=== PATIENT | male | born 1950 | race Caucasian/White ===

== ENCOUNTER → 2016-03-23 | Outpatient (CLI) | payer MEDICARE, MEDICAID | LOC: RAD 15:28 | PROVIDERS: ATTEND Nurse Practitioner Adult Health | DX: R91.1 Solitary pulmonary nodule (principal); J98.4 Other disorders of lung | CPT/HCPCS: 78814; A9552 ==

== ENCOUNTER → 2016-04-25 | Outpatient (CLI) | payer MEDICARE, MEDICAID | LOC: RAD 16:12 | PROVIDERS: ATTEND Family Medicine | DX: M54.16 Radiculopathy, lumbar region (principal) | CPT/HCPCS: 72110 ==

== ENCOUNTER → 2016-12-12 | Outpatient (CLI) | payer MEDICARE, MEDICAID ==
[~2016-12-12] MED LIST: DIAZEPAM 5 MG TABLET ONE
--- NOTE | 2016-12-12 12:13 | RADIOLOGY REPORT (SQ) ---
EXAM DESCRIPTION: MRI LUMBAR SPINE WITHOUT COMPLETED DATE/TIME: 12/12/2016 9:45 am REASON FOR STUDY: OTH SPECIFIC ARTHROPATHIES, NEC, OT SITE (M12.88) M54.5 LOW BACK PAIN M12.88 OT H SPECIFIC ARTHROPATHIES, NEC, OTH SITE COMPARISON: CT abdomen pelvis 05/26/2013 PET-CT 03/23/2016 Lumbar spine films 04/25/2016 TECHNIQUE: Sagittal and Axial imaging includes T1, T2, STIR and gradient echo sequences. Coronal T2/ HASTE imaging. LIMITATIONS: None. FINDINGS: VISUALIZED UPPER ABDOMEN: Limited evaluation. No acute or suspicious findings suggested. SEGMENTATION: No transitional anatomy. The lowest well-developed disc space is labeled L5-S1. ALIGNMENT: Mild convex rightward lumbar curvature VERTEBRAE: Intact. BONE MARROW: Fatty and sclerotic vertebral body endplate changes at L2-3 DISC SIGNAL: High-grade disc space loss of height with vacuum phenomenon at L2-3. Mild disc space lo ss of height with vacuum phenomenon at L4-5. Elsewhere, decreased T2 weighted intervertebral disc si gnal is present. POSTERIOR ELEMENTS: Generally intact. No pars defect evident. HARDWARE: None in the spine. CORD AND CONUS: Normal in size and signal intensity. Conus at the L1 level. SOFT TISSUES: No aortic aneurysm seen. No bulky retroperitoneal adenopathy or mass. No paraspinal mas s or fluid. T11-12: At the upper edge of the field of view. Moderate bilateral facet arthropathy is present rig ht greater than left, mildly flattening the rightward posterior thecal sac. No significant central s tenosis. Mild bilateral foraminal narrowing without exiting nerve root impingement. T12-L1: Mild diffuse posterior disc bulging is present with mild bilateral facet hypertrophy. No ce ntral stenosis. Very mild bilateral foraminal narrowing without exiting nerve root impingement. L1-L2: Broad diffuse mild disc bulge, mild to moderate bilateral facet and ligament hypertrophy. No central stenosis. Mild bilateral inferior foraminal narrowing without exiting nerve root impingement . L2-L3: Broad diffuse posterior disc bulge and bony spurring with moderate bilateral facet and ligamen t hypertrophy. There is a left paracentral moderate-sized chronic appearing disc herniation, flatten ing the leftward thecal sac near the takeoff of the left proximal L3 nerve root in the lateral recess . This is best shown on axial T2 image 19. Elsewhere at L2-3, there is mild central canal stenosis, mild right and moderate left foraminal narro wing without exiting L2 nerve root impingement. L3-L4: Broad diffuse posterior disc bulge and bony spurring is present with moderate bilateral facet and ligament hypertrophy. Mild central stenosis. Moderate right and left foraminal narrowing withou t definite exiting L3 nerve root impingement. L4-L5: Broad diffuse posterior disc bulging and moderate bilateral facet and ligament hypertrophy rhonda ng with a central protrusion and right foraminal protrusion. This causes moderate central canal sten osis and high-grade right foraminal narrowing with effacement of the fat around the exiting right L4 nerve root. These changes are best shown on axial T2 images 28 and 29, and far right sagittal T2 jose ge 4. There is moderate left foraminal narrowing without definite exiting left L4 nerve root impinge ment. L5-S1: Broad diffuse posterior disc bulging is present with mild facet and ligament hypertrophy. Mil d central canal stenosis. Moderate right, mild left foraminal narrowing without exiting L5 nerve parker t impingement. SACRUM: Visualized upper sacrum intact. OTHER: No other significant findings. IMPRESSION: Significant flattening of the thecal sac at the takeoff of the left proximal L3 nerve ro ot in the lateral recess at the L2-3 disc level. High-grade right L4-5 foraminal narrowing with effacement of the fat around the exiting right L4 nerv e root. Mild central canal stenosis at L3-4 and at L5-S1. Moderate central canal stenosis at L4-5 TECHNICAL DOCUMENTATION: JOB ID: [id number] [employer]- All Rights Reserved
== END ==
LOC: RAD 08:20
PROVIDERS: ATTEND Nurse Practitioner Psychiatric/Mental Health
DX: M12.88 Other specific arthropathies, not elsewhere classified, other specified site (principal); M54.5 Low back pain
CPT/HCPCS: 72148; A9270

== ENCOUNTER 2017-01-17 11:58 | Inpatient (IN) | payer MEDICARE, MEDICAID ==
[2017-01-17] MEDS ORDERED: IPRATROPIUM/ALBUTEROL 0.5-2.5 MG/3 ML AMPUL NEB ONE (12:49)
[2017-01-17] MEDS ORDERED: PREDNISONE 20 MG TABLET PO ONE (12:49)
--- NOTE | 2017-01-17 12:51 | ER Document Report ---
ED Medical Screen (RME) - General Chief Complaint: Shortness Of Breath Stated Complaint: SHORTNESS OF BREATH Time Seen by Provider: 01/17/17 12:40 Notes: The patient is a 66-year-old male, past medical history COPD (on home 2 L), presents with increasing shortness of breath and cough with wheezing over the past week. He has been using his albuterol inhaler without much relief of his symptoms. His fiance is admitted currently for influenza he is worried that he has it also. PE: Mild respiratory distress. Diffuse wheezing. I have greeted and performed a rapid initial assessment of this patient. A comprehensive ED assessment and evaluation of the patient, analysis of test results and completion of the medical decision making process will be conducted by additional ED providers. TRAVEL OUTSIDE OF THE [place] IN LAST 30 DAYS: No - Related Data Allergies/Adverse Reactions: No Known Allergies Allergy (Verified 01/17/17 12:21) Home Medications: Current Home Medications Albuterol Sulfate [Ventolin Hfa] 2 dose IH PRN PRN 01/17/17 [History] Budesonide/Formoterol Fumarate [Symbicort 160-4.5 Mcg Inhaler] 2 dose IH BID [History] Metoprolol Tartrate 50 mg PO BID 01/17/17 [History] Oxycodone HCl [Oxycodone HCl] 10 mg PO PRN PRN 01/17/17 [History] Tiotropium [place] [Spiriva Handihaler 18 mcg/dose (30 Dose)] 1 cap IH DAILY [History] Past Medical History - Social History Chew tobacco use (# tins/day): No Frequency of alcohol use: None Drug Abuse: None - Past Medical History Cardiac Medical History: Reports: Hx Hypertension, Hx Heart Murmur - IN CHILDHOOD Denies: Hx Coronary Artery Disease, Hx Heart Attack Pulmonary Medical History: Reports: Hx Asthma, Hx Bronchitis Denies: Hx COPD, Hx Pneumonia Neurological Medical History: Denies: Hx Cerebrovascular Accident, Hx Seizures Renal/ Medical History: Denies: Hx Peritoneal Dialysis Musculoskeltal Medical History: Reports Hx Arthritis Past Surgical History: Reports: Hx Inguinal Hernia - Immunizations Hx Diphtheria, Pertussis, Tetanus Vaccination: Yes - STATES ALMOST 10 YEARS AGO Physical Exam - Vital signs Vitals: Temp Pulse Resp BP Pulse Ox 98.4 F 85 20 130/87 H 90 L 01/17/17 12:17 01/17/17 12:17 01/17/17 12:17 01/17/17 12:17 01/17/17 12:17 Course - Vital Signs Vital signs: Temp Pulse Resp BP Pulse Ox 98.4 F 85 20 130/87 H 90 L 01/17/17 12:17 01/17/17 12:17 01/17/17 12:17 01/17/17 12:17 01/17/17 12:17
[2017-01-17 13:13] LABS: ABSOLUTE BASOPHILS # (AUTO) 0.1 10^3/uL (0.0-0.2); ABSOLUTE EOSINOPHILS # (AUTO) 0.2 10^3/uL (0.0-0.6); ABSOLUTE LYMPHOCYTES (AUTO) 3.5 10^3/uL (0.5-4.7); ABSOLUTE MONOCYTES (AUTO) 0.9 10^3/uL (0.1-1.4); ABSOLUTE NEUT (AUTO) 5.9 10^3/uL (1.7-8.2); EOSINOPHILS % (AUTO) 2.1 % (0-6); HEMATOCRIT 41.2 % (37.9-51.0); HEMOGLOBIN 13.6 g/dL (13.5-17.0); HGB HCT DIFFERENCE -0.4; LYMPHOCYTES % (AUTO) 32.6 % (13-45); MEAN CORPUSCULAR HEMOGLOBIN 27.2 pg (27.0-33.4); MEAN CORPUSCULAR HGB CONC 33.1 g/dL (32.0-36.0); MEAN CORPUSCULAR VOLUME 82 fl (80-97); MONOCYTES % (AUTO) 8.4 % (3-13); RED BLOOD COUNT 5.01 10^6/uL (4.35-5.55); RED CELL DISTRIBUTION WIDTH 16.4 % (11.5-14.0); SEGMENTED NEUTROPHILS % (AUTO) 55.9 % (42-78); VENOUS BLOOD BASE EXCESS 6.8 mmol/L; VENOUS BLOOD HCO3 35.4 mmol/L (20-32); VENOUS BLOOD PH 7.33 (7.30-7.42); WHITE BLOOD COUNT 10.6 10^3/uL (4.0-10.5)
[2017-01-17 13:18] LABS: VENOUS BLOOD PCO2 69.1 mmHg (35-63)
--- NOTE | 2017-01-17 13:21 | RADIOLOGY REPORT (SQ) ---
EXAM DESCRIPTION: CHEST PA/LAT COMPLETED DATE/TIME: 01/17/2017 1:13 pm REASON FOR STUDY: SOB COMPARISON: 01/03/2016 EXAM PARAMETERS: NUMBER OF VIEWS: two views TECHNIQUE: Digital Frontal and Lateral radiographic views of the chest acquired. RADIATION DOSE: NA LIMITATIONS: none FINDINGS: LUNGS AND PLEURA: Chronic changes at the right base. Hyperinflation with attenuation of b lood vessels. MEDIASTINUM AND HILAR STRUCTURES: No masses or contour abnormalities. HEART AND VASCULAR STRUCTURES: Normal size heart. Valve replacement. BONES: No acute findings. HARDWARE: Valve replacement. OTHER: No other significant finding. IMPRESSION: COPD. No acute radiographic finding. Interval aortic valve replacement. TECHNICAL DOCUMENTATION: JOB ID: [id number] [employer]- All Rights Reserved
[2017-01-17 13:43] LABS: ALANINE AMINOTRANSFERASE 54 U/L (21-72); ALKALINE PHOSPHATASE 63 U/L (38-126); ANION GAP 9 (5-19); ASPARTATE AMINO TRANSFERASE 40 U/L (17-59); BILIRUBIN,DIRECT 0.5 mg/dL (0.0-0.4); BILIRUBIN,TOTAL 0.5 mg/dL (0.2-1.3); BLOOD UREA NITROGEN 24 mg/dL (7-20); CALCIUM 9.7 mg/dL (8.4-10.2); CARBON DIOXIDE 36 mmol/L (22-30); CHLORIDE 101 mmol/L (98-107); CREATINE KINASE 44 U/L (55-170); CREATININE RESULT 1.06 mg/dL (0.52-1.25); GLUCOSE 101 mg/dL (75-110); POTASSIUM 4.5 mmol/L (3.6-5.0); SODIUM 145.7 mmol/L (137-145); TOTAL PROTEIN 7.1 g/dL (6.3-8.2)
[2017-01-17] MEDS ORDERED: MORPHINE SULFATE 10 MG/ML INJ IV ONE (14:47)
[2017-01-17] MEDS ORDERED: ONDANSETRON HCL INJ/PF 4 MG/2 ML SDV IV ONE (14:48)
[2017-01-17] MEDS ORDERED: LORAZEPAM INJ 2 MG/1 ML VIAL IV ONE (14:49)
--- NOTE | 2017-01-17 14:55 | ER Document Report ---
ED Respiratory Problem - General Chief Complaint: Shortness Of Breath Stated Complaint: SHORTNESS OF BREATH Time Seen by Provider: 01/17/17 12:40 Mode of Arrival: Ambulatory Information source: Patient Notes: Patient is a 66-year-old male who comes emergency room complaining of increasing shortness of breath for the past week. Patient came into the emergency room through the front where he was evaluated and labs ordered. Patient when he got to the room was working fairly hard on his breathing. He had dropped down to between 86 and 88% on room air. Patient has a history of COPD and is currently on nebulizers at home and oxygen as well. He states he is increased his oxygen over the past week up to around 3-4 L. Patient also admits that he continues smoking a pack and a little bit a day and states that is down from his normal amount. Patient recently had a valve replacement which I believe was the aortic valve and it was a pigtail. This was done approximately 8 months ago. TRAVEL OUTSIDE OF THE [place] IN LAST 30 DAYS: No - HPI Patient complains to provider of: COPD, Cough, Hurts to breath, Short of breath Onset: Last week Duration: Continuous, Worse/persistent Initiating Event: Exertion Quality of pain: Achy Severity: Moderate Pain Level: 3 Short of Breath: Moderate Chest pain/discomfort: denies: Center, Constant, Heaviness, Intermittent, Left, Pain, Radiates to arm, Radiates to back, Radiates to jaw, Right, Tightness, Worse with deep breaths Cough: Productive Sputum amount: Moderate Sputum color: Clear, Yellow Sputum consistency: Thick At home treatment: Bronchodilators, Inhaled steroids EMS treatments: Bronchodilators, Oxygen Associated symptoms: Anxiety, Congestion, Cough, Hurts to breathe, Wheezing Similar symptoms previously: Yes Recently seen / treated by doctor: No Notes: Important to note that patient states his is in hospital on 4 4 with pneumonia has been treated. Patient is somewhat argumentative and demanding has threatened to leave AMA on 2 occasions because he did not get any pain medication when he asked for and or did not get food when he asked for. I had a long talk with patient informed him is not the only person here that we have to give us time to do our jobs. He ended up apologizing. - Related Data Allergies/Adverse Reactions: No Known Allergies Allergy (Verified 01/17/17 12:21) Home Medications: Current Home Medications Albuterol Sulfate [Ventolin Hfa] 2 dose IH PRN PRN 01/17/17 [History] Budesonide/Formoterol Fumarate [Symbicort 160-4.5 Mcg Inhaler] 2 dose IH BID [History] Metoprolol Tartrate 50 mg PO BID 01/17/17 [History] Oxycodone HCl [Oxycodone HCl] 10 mg PO PRN PRN 01/17/17 [History] Tiotropium [place] [Spiriva Handihaler 18 mcg/dose (30 Dose)] 1 cap IH DAILY [History] Past Medical History - General Information source: Patient - Social History Smoking Status: Current Every Day Smoker Cigarette use (# per day): Yes - Little over a pack a day Chew tobacco use (# tins/day): No Smoking Education Provided: Yes Frequency of alcohol use: None Drug Abuse: None Family History: Reviewed & Not Pertinent Patient has suicidal ideation: No Patient has homicidal ideation: No - Past Medical History Cardiac Medical History: Reports: Hx Hypertension, Hx Heart Murmur - IN CHILDHOOD Denies: Hx Coronary Artery Disease, Hx Heart Attack Pulmonary Medical History: Reports: Hx Asthma, Hx Bronchitis Denies: Hx COPD, Hx Pneumonia Neurological Medical History: Denies: Hx Cerebrovascular Accident, Hx Seizures Renal/ Medical History: Denies: Hx Peritoneal Dialysis Musculoskeltal Medical History: Reports Hx Arthritis Past Surgical History: Reports: Hx Inguinal Hernia - Immunizations Hx Diphtheria, Pertussis, Tetanus Vaccination: Yes - STATES ALMOST 10 YEARS AGO Review of Systems - Review of Systems Constitutional: No symptoms reported, Malaise, Weakness EENT: Sinus pressure Cardiovascular: No symptoms reported Respiratory: Cough, Hurts to breathe, Short of breath, Sputum, Wheezing Gastrointestinal: No symptoms reported Genitourinary: No symptoms reported Male Genitourinary: No symptoms reported Musculoskeletal: No symptoms reported Skin: No symptoms reported Hematologic/Lymphatic: No symptoms reported Neurological/Psychological: No symptoms reported -: Yes All other systems reviewed and negative Physical Exam - Vital signs Vitals: Temp Pulse Resp BP Pulse Ox 98.4 F 85 20 130/87 H 90 L 01/17/17 12:17 01/17/17 12:17 01/17/17 12:17 01/17/17 12:17 01/17/17 12:17 Interpretation: Hypertensive - General General appearance: Anxious In distress: Moderate - HEENT Head: Normocephalic, Atraumatic Eyes: Normal Sinus: Frontal, Tenderness Nasal: Clear rhinorrhea Mouth/Lips: Normal Mucous membranes: Normal Pharynx: Post nasal drainage Neck: Normal - Respiratory Respiratory status: No respiratory distress Chest status: Nontender. No: Tender, Chest mass, Ecchymosis, No pleuritic chest pain, Pain on movement, Pain with cough, Pain with deep breathing, Wounds , Accessory muscle use, Prolonged expirations, Splinting, Other Breath sounds: Decreased air movement, Nonproductive cough, Rales, Rhonchi, Wheezing, Other - Auscultation patient's lung zuñiga show patient has bilateral breath sounds with breath sounds decreased throughout with audible inspiratory expiratory wheeze and rhonchi scattered throughout all lung zuñiga. Patient sounds wet. - Cardiovascular Rhythm: Regular Heart sounds: Normal auscultation Murmur: No Notes: Examination patient's chest shows heart to have a regular rate and rhythm no murmur is appreciated however he can hear mechanical click of the valve. - Extremities Notes: Examination patient's lower extremities show no signs of pedal edema no signs of overt heart failure. - Neurological Neuro grossly intact: Yes Cognition: Normal Orientation: AAOx4 Kermit Coma Scale Eye Opening: Spontaneous Kirk Coma Scale Verbal: Oriented Kirk Coma Scale Motor: Obeys Commands Kermit Coma Scale Total: 15 Speech: Normal Course - Vital Signs Vital signs: Temp Pulse Resp BP Pulse Ox 98.4 F 85 20 130/87 H 92 01/17/17 12:17 01/17/17 12:17 01/17/17 12:17 01/17/17 12:17 01/17/17 13:15 - Laboratory Result Diagrams: 01/17/17 12:58 01/17/17 12:58 Laboratory results interpreted by me: 01/17/17 01/17/17 01/17/17 12:58 12:58 12:58 WBC 10.6 H RDW 16.4 H VBG pCO2 69.1 H* VBG HCO3 35.4 H Sodium 145.7 H Carbon Dioxide 36 H BUN 24 H Direct Bilirubin 0.5 H Creatine Kinase 44 L - Diagnostic Test Radiology results interpreted by me: 01/17/17 15:00 Radiologist reads the chest x-ray as no acute findings COPD is noted. - EKG Interpretation by Me EKG shows normal: Sinus rhythm Rate: Normal Rhythm: NSR - Transfer of Care Notes: 01/17/17 15:01 Patient improved somewhat after getting the Solu-Medrol and his nebulized treatment. I gave a little bit of pain medication to calm patient down he became a little bit agitated because he could not get something to eat and he is back was hurting him from his breathing. I gave him just a touch of Ativan 0.5 and I gave him just a touch of morphine at 2 mg. I believe this is ingest enough to take the edge off of them. I did have a talk with patient and informed him that we have more than 1 here in this emergency room. I informed him that I left his room 10 minutes prior with the indication to get him admitted and he agreed to wait till I could do so. However that did not happen patient got irate was getting dressed to leave when I informed him he was admitted. Discharge - Discharge Condition: Fair Disposition: ADMITTED INPATIENT Admitting Provider: Dr. Avelar Unit Admitted: Telemetry Instructions: Chronic Obstructive Lung Disease ([facility]) Referrals: LINNEA LILLY MD [Primary Care Provider] - Follow up as needed
[2017-01-17] MEDS ORDERED: ACETAMINOPHEN 325 MG TABLET PO PRN (15:21)
[2017-01-17] MEDS ORDERED: ENOXAPARIN SODIUM INJ 40 MG/0.4 ML DISP.SYRIN SUBCUT ONE (16:00)
[2017-01-17] MEDS ORDERED: NICOTINE 21 MG/24 HR PATCH.TD24 TD ONE (16:00)
[2017-01-17] MEDS ORDERED: BUDESONIDE/FORMOTEROL 160-4.5 MCG 60 PUFF/6 GM MDI IH SCH (18:00)
[2017-01-17] MEDS ORDERED: METOPROLOL TARTRATE 50 MG TABLET PO SCH (18:00)
[2017-01-17] MEDS: OXYCODONE HCL IR 5 MG TABLET PO PRN (19:02)
[2017-01-17] MEDS: BUDESONIDE/FORMOTEROL 160-4.5 MCG 60 PUFF/6 GM MDI IH SCH (21:49)
[2017-01-17] MEDS: METOPROLOL TARTRATE 50 MG TABLET PO SCH (21:49)
[2017-01-18 06:12] LABS: ABSOLUTE LYMPHOCYTES (AUTO) 1.9 10^3/uL (0.5-4.7); ABSOLUTE MONOCYTES (AUTO) 0.9 10^3/uL (0.1-1.4); ABSOLUTE NEUT (AUTO) 10.5 10^3/uL (1.7-8.2); BASOPHILS % (AUTO) 0.4 % (0-2); EOSINOPHILS % (AUTO) 0.1 % (0-6); HEMATOCRIT 39.4 % (37.9-51.0); HEMOGLOBIN 12.8 g/dL (13.5-17.0); LYMPHOCYTES % (AUTO) 14.4 % (13-45); MEAN CORPUSCULAR HEMOGLOBIN 26.7 pg (27.0-33.4); MEAN CORPUSCULAR HGB CONC 32.6 g/dL (32.0-36.0); MEAN CORPUSCULAR VOLUME 82 fl (80-97); MONOCYTES % (AUTO) 6.8 % (3-13); RED BLOOD COUNT 4.81 10^6/uL (4.35-5.55); RED CELL DISTRIBUTION WIDTH 16.3 % (11.5-14.0); SEGMENTED NEUTROPHILS % (AUTO) 78.3 % (42-78); WHITE BLOOD COUNT 13.4 10^3/uL (4.0-10.5)
[2017-01-18 06:35] LABS: ANION GAP 10 (5-19); BLOOD UREA NITROGEN 33 mg/dL (7-20); CALCIUM 9.6 mg/dL (8.4-10.2); CARBON DIOXIDE 34 mmol/L (22-30); CHLORIDE 100 mmol/L (98-107); CREATININE RESULT 1.09 mg/dL (0.52-1.25); GLUCOSE 146 mg/dL (75-110); MAGNESIUM 2.1 mg/dL (1.6-2.3); POTASSIUM 4.7 mmol/L (3.6-5.0); SODIUM 144.2 mmol/L (137-145)
[2017-01-18] MEDS: ALBUTEROL SULFATE 0.083% NEB 2.5 MG/3 ML AMPUL NEB PRN ×3 (08:40→22:39)
--- NOTE | 2017-01-18 08:58 | PDOC PROGRESS REPORT ---
Subjective Progress Note for:: 01/18/17 Subjective:: This is a follow-up visit for acute COPD exacerbation. Patient states that he keeps coughing and is now feeling soreness in his chest. He also complains of sciatic pain and says that he only got 1 dose of his narcotic pills and that was last night. The patient also states that he feels as though he is wheezing and that his respiratory status feels essentially the same as yesterday. Physical Exam Vital Signs: Temp Pulse Resp BP Pulse Ox 97.4 F 82 20 111/63 92 01/18/17 04:11 01/18/17 08:41 01/18/17 08:41 01/18/17 04:11 01/18/17 08:41 Intake & Output 01/17/17 01/18/17 01/19/17 06:59 06:59 06:59 Intake Total 890 Output Total 320 Balance 570 Weight 76.2 kg GENERAL: This is a well-developed and nourished appearing white male resting in bed currently in no acute distress. HEART: Regular rate and rhythm. No murmurs, rubs or gallops. LUNGS: Occasional expiratory wheeze bilaterally otherwise clear in the upper lung zuñiga with equal rise and fall of the chest. The patient is able to speak in full and complete sentences. ABDOMEN: Soft, nontender, nondistended with normoactive bowel sounds EXTREMETIES: No clubbing, cyanosis or edema. 2+ peripheral pulses bilaterally. NEURO: Awake, alert and oriented 3. Cranial nerves II through XII are grossly intact Results Laboratory Results: 01/18/17 05:44 01/18/17 05:44 01/18/17 01/18/17 05:44 05:44 WBC 13.4 H RBC 4.81 Hgb 12.8 L Hct 39.4 MCV 82 MCH 26.7 L MCHC 32.6 RDW 16.3 H Plt Count 215 Seg Neutrophils % 78.3 H Lymphocytes % 14.4 Monocytes % 6.8 Eosinophils % 0.1 Basophils % 0.4 Absolute Neutrophils 10.5 H Absolute Lymphocytes 1.9 Absolute Monocytes 0.9 Absolute Eosinophils 0.0 Absolute Basophils 0.0 Sodium 144.2 Potassium 4.7 Chloride 100 Carbon Dioxide 34 H Anion Gap 10 BUN 33 H Creatinine 1.09 Est GFR ( Amer) > 60 Est GFR (Non-Af Amer) > 60 Glucose 146 H Calcium 9.6 Magnesium 2.1 Impressions: Chest X-Ray 01/17/17 12:13 IMPRESSION: COPD. No acute radiographic finding. Interval aortic valve replacement. Assessment & Plan - Diagnosis (1) Tobacco abuse Plan: Smoking cessation is advised. (2) Hypertension Plan: Continue metoprolol for now. (4) COPD with exacerbation Plan: Continue steroids. Solu-Medrol 40 every 12. Add Romycin. Add as needed Robitussin and as needed Tessalon Perles. Continue as needed nebulizer treatments. Continue Spiriva and Symbicort - Time Time Spent with patient: 15-24 minutes - Inpatient Certification Medical Necessity: Need Close Monitoring Due to Risk of Patient Decompensation
--- NOTE | 2017-01-18 08:59 | PDOC H&P ---
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 The patient has been short of breath for the last 8 months. He says that it has been getting progressively worse but especially over the last 2 days if to the point where he cannot even walk to take out the trash. He states that he is also been feeling quite dizzy as well. He tried using his inhalers as prescribed as well as increasing his home O2 from 2 L/min to 4 L/min and neither of these interventions helped. The patient's fianc is currently hospitalized here as well. She has a diagnosis of pneumonia. In addition to this the patient has been around other Associates who had been sick as well. He also reports chest discomfort and production of yellow phlegm. He is a current smoker and smokes about 1 pack per day. The patient has been a smoker for the last 50 years and has smoked upwards of 2-3 packs per day. He states that he is trying to cut down. In the emergency room chest x-ray was done which was unrevealing. The patient's O2 sat was found to be right at 88%. He was started on oxygen down in the emergency room and given a nebulizer treatment along with a dose of Solu-Medrol. The patient states that he follows with a lung doctor but cannot remember the lung doctors name. He denies any fevers, chills, nausea, vomiting. Past Medical History Cardiac Medical History: Reports: Hypertension, Heart Murmur - IN CHILDHOOD Pulmonary Medical History: Reports: Asthma, Chronic Obstructive Pulmonary Disease (COPD) Neurological Medical History: Reports: Other - Chronic back pain with sciatica Musculoskeltal Medical History: Reports: Arthritis Past Surgical History Past Surgical History: Reports: Herniorrhaphy, Valve Replacement - Aortic pig valve Social History Information Source: Patient Lives with: Alone Smoking Status: Current Every Day Smoker Cigarettes Packs Per Day: 1 Number of Years Smokin Hx Recreational Drug Use: No Drugs: Marijuana - Patient quit smoking marijuana 30 years ago. Past Social History Note: Patient consumes beer on a weekly basis. He states he drinks a couple beers once a week. He has been smoking for the last 50 years to upwards of 2-3 packs per day but lately has been down to 1 pack per day - Advance Directive Resuscitation Status: Full Code Family History Family History: None Parental Family History Reviewed: Yes Children Family History Reviewed: Yes Sibling(s) Family History Reviewed.: Yes Medication/Allergy Home Medications: Albuterol Sulfate [Ventolin Hfa] 2 dose IH PRN PRN 01/17/17 Budesonide/Formoterol Fumarate [Symbicort 160-4.5 Mcg Inhaler] 2 dose IH BID Metoprolol Tartrate 50 mg PO BID 01/17/17 Oxycodone HCl [Oxycodone HCl] 10 mg PO PRN PRN 01/17/17 Tiotropium [place] [Spiriva Handihaler 18 mcg/dose (30 Dose)] 1 cap IH DAILY Allergies/Adverse Reactions: No Known Allergies Allergy (Verified 01/17/17 12:21) Review of Systems Review of Systems: Review of systems is pertinent for that already listed in the HPI. In addition to this the patient admits to constipation with his chronic use of pain medicines as well as chronic back pain from sciatica trouble. He denies blood in the urine, blood in the stool, throwing up blood, vomiting blood, diarrhea, changes in weight, joint aches or pains, abdominal pain, hot or cold flashes. Physical Exam Vital Signs: Temp Pulse Resp BP Pulse Ox 98.4 F 85 20 130/87 H 92 01/17/17 12:17 01/17/17 12:17 01/17/17 12:17 01/17/17 12:17 01/17/17 13:15 Intake & Output 01/16/17 01/17/17 01/18/17 06:59 06:59 06:59 Weight 71.1 kg GENERAL: This is a well-developed and nourished appearing white male resting in bed currently not appearing to be in any acute distress. HEENT: Normocephalic atraumatic. Trachea is midline. Moist mucous membranes. No scleral icterus. No some mandibular lymphadenopathy. HEART: Regular rate and rhythm. No murmurs, rubs or gallops. LUNGS: Diminished breath sounds at the bases bilaterally otherwise clear in the upper lung zuñiga with equal rise and fall of the chest. The patient is able to speak in full and complete sentences. He is satting in the room at around 87 -88% at rest and when asked to sit up the patient immediately drops down to 84% and with further speaking down to 81%. Despite his low oxygenation the patient never became tachypneic. ABDOMEN: Soft, nontender, nondistended with normoactive bowel sounds EXTREMETIES: No clubbing, cyanosis or edema. 2+ peripheral pulses bilaterally. Strength is 5 out of 5 in both upper and lower extremities bilaterally. NEURO: Awake, alert and oriented 3. Cranial nerves II through XII are specifically intact. Speech is fluent Results Laboratory Results: 01/17/17 12:58 01/17/17 12:58 01/17/17 01/17/17 01/17/17 12:58 12:58 12:58 WBC 10.6 H RBC 5.01 Hgb 13.6 Hct 41.2 MCV 82 MCH 27.2 MCHC 33.1 RDW 16.4 H Plt Count 231 Seg Neutrophils % 55.9 Lymphocytes % 32.6 Monocytes % 8.4 Eosinophils % 2.1 Basophils % 1.0 Absolute Neutrophils 5.9 Absolute Lymphocytes 3.5 Absolute Monocytes 0.9 Absolute Eosinophils 0.2 Absolute Basophils 0.1 VBG pH 7.33 VBG pCO2 69.1 H* VBG HCO3 35.4 H VBG Base Excess 6.8 Sodium 145.7 H Potassium 4.5 Chloride 101 Carbon Dioxide 36 H Anion Gap 9 BUN 24 H Creatinine 1.06 Est GFR ( Amer) > 60 Est GFR (Non-Af Amer) > 60 Glucose 101 Calcium 9.7 Total Bilirubin 0.5 AST 40 ALT 54 Alkaline Phosphatase 63 Total Protein 7.1 Albumin 4.0 01/17/17 01/17/17 12:58 12:58 Creatine Kinase 44 L Troponin I 0.016 Impressions: Chest X-Ray 01/17/17 12:13 IMPRESSION: COPD. No acute radiographic finding. Interval aortic valve replacement.
[2017-01-18] MEDS: ENOXAPARIN SODIUM INJ 40 MG/0.4 ML DISP.SYRIN SUBCUT SCH (09:33)
[2017-01-18] MEDS: BUDESONIDE/FORMOTEROL 160-4.5 MCG 60 PUFF/6 GM MDI IH SCH ×2 (09:33→21:58)
[2017-01-18] MEDS: METHYLPREDNISOLONE INJ 40 MG/1 ML SDV IV SCH ×2 (09:34→21:58)
[2017-01-18] MEDS: AZITHROMYCIN 250 MG TABLET PO SCH (09:34)
[2017-01-18] MEDS: BENZONATATE 100 MG CAPSULE PO PRN (09:35)
[2017-01-18] MEDS: METOPROLOL TARTRATE 50 MG TABLET PO SCH ×2 (09:35→21:58)
[2017-01-18] MEDS: OXYCODONE HCL IR 5 MG TABLET PO PRN ×2 (09:35→17:43)
[2017-01-18] MEDS: TIOTROPIUM BROMIDE DPI 5 CAP/KIT (18 MCG/CAP) IH SCH (09:35)
[2017-01-18] MEDS: GUAIFENESIN SYRP 200 MG/10 ML UDC PO PRN (18:47)
[2017-01-19] MEDS: OXYCODONE HCL IR 5 MG TABLET PO PRN ×4 (02:09→22:15)
[2017-01-19] MEDS: BENZONATATE 100 MG CAPSULE PO PRN ×2 (02:09→22:15)
[2017-01-19] MEDS: BUDESONIDE/FORMOTEROL 160-4.5 MCG 60 PUFF/6 GM MDI IH SCH ×2 (09:32→22:15)
[2017-01-19] MEDS: ENOXAPARIN SODIUM INJ 40 MG/0.4 ML DISP.SYRIN SUBCUT SCH (09:32)
[2017-01-19] MEDS: AZITHROMYCIN 250 MG TABLET PO SCH (09:32)
[2017-01-19] MEDS: METOPROLOL TARTRATE 50 MG TABLET PO SCH ×2 (09:32→22:15)
[2017-01-19] MEDS: METHYLPREDNISOLONE INJ 40 MG/1 ML SDV IV SCH ×2 (09:32→22:16)
[2017-01-19] MEDS: TIOTROPIUM BROMIDE DPI 5 CAP/KIT (18 MCG/CAP) IH SCH (09:32)
[2017-01-19] MEDS ORDERED: OXYCODONE HCL IR 5 MG TABLET PO PRN (10:43)
--- NOTE | 2017-01-19 10:43 | PDOC PROGRESS REPORT ---
Subjective Progress Note for:: 01/19/17 Subjective:: reason for visit: follow up COPD exac admitted and started on abx, nebs, steroids but with only minimal improvement. continues to c/o cough productive of phlegm, easy fatiguability, easily winded, wheezing and poor sleep. also reports exac of his chronic back pain and states we aren't giving him his meds like he takes at home. Physical Exam Vital Signs: Temp Pulse Resp BP Pulse Ox 97.9 F 79 19 136/92 H 92 01/19/17 08:10 01/19/17 08:10 01/19/17 08:10 01/19/17 08:10 01/19/17 08:10 Intake & Output 01/18/17 01/19/17 01/20/17 06:59 06:59 06:59 Intake Total 890 571 Output Total 320 Balance 570 571 Weight 76.2 kg 76.2 kg General appearance: PRESENT: no acute distress Head exam: PRESENT: atraumatic Eye exam: PRESENT: EOMI, PERRLA Mouth exam: PRESENT: moist Neck exam: ABSENT: lymphadenopathy, tenderness Respiratory exam: PRESENT: crackles, rhonchi - R>L, wheezes - exp on the Right posterior. ABSENT: accessory muscle use Cardiovascular exam: PRESENT: RRR. ABSENT: systolic murmur GI/Abdominal exam: PRESENT: normal bowel sounds, soft. ABSENT: tenderness Extremities exam: ABSENT: calf tenderness, pedal edema Musculoskeletal exam: PRESENT: ambulatory Neurological exam: PRESENT: alert, oriented to person, oriented to place, oriented to time Results Laboratory Results: 01/18/17 05:44 01/18/17 05:44 sputum shows GNR, scant amount Impressions: Chest X-Ray 01/17/17 12:13 IMPRESSION: COPD. No acute radiographic finding. Interval aortic valve replacement. Status: Imported from PACS Assessment & Plan - Diagnosis (1) COPD with exacerbation Is this a current diagnosis for this admission?: Yes Plan: not much improvement and with findings of even a scant amt of GNR in sputum and continued purulent changes to sputum will chg to levaquin for better coverage; otherwise continue current regimen (2) Hypertension Qualifiers: Hypertension type: essential hypertension Qualified Code(s): I10 - Essential (primary) hypertension Is this a current diagnosis for this admission?: Yes Plan: stable on current regimen (3) Tobacco abuse Is this a current diagnosis for this admission?: Yes - Time Time Spent with patient: 15-24 minutes
[2017-01-19] MEDS: ALBUTEROL SULFATE 0.083% NEB 2.5 MG/3 ML AMPUL NEB PRN ×2 (11:29→21:17)
[2017-01-19] MEDS: LEVOFLOXACIN 750 MG TABLET PO SCH (12:56)
[2017-01-19] MEDS: ALPRAZOLAM 0.5 MG TABLET PO PRN (16:19)
[2017-01-20] MEDS: GUAIFENESIN SYRP 200 MG/10 ML UDC PO PRN (00:24)
[2017-01-20] MEDS: ALPRAZOLAM 0.5 MG TABLET PO PRN ×3 (00:24→18:30)
[2017-01-20] MEDS: OXYCODONE HCL IR 5 MG TABLET PO PRN ×4 (04:56→23:10)
[2017-01-20] MEDS: ENOXAPARIN SODIUM INJ 40 MG/0.4 ML DISP.SYRIN SUBCUT SCH (10:08)
[2017-01-20] MEDS: METHYLPREDNISOLONE INJ 40 MG/1 ML SDV IV SCH ×2 (10:08→23:09)
[2017-01-20] MEDS: BUDESONIDE/FORMOTEROL 160-4.5 MCG 60 PUFF/6 GM MDI IH SCH ×2 (10:08→23:09)
[2017-01-20] MEDS: TIOTROPIUM BROMIDE DPI 5 CAP/KIT (18 MCG/CAP) IH SCH (10:09)
[2017-01-20] MEDS: METOPROLOL TARTRATE 50 MG TABLET PO SCH ×2 (10:09→23:09)
[2017-01-20] MEDS: LEVOFLOXACIN 750 MG TABLET PO SCH (10:10)
[2017-01-20] MEDS: ALBUTEROL SULFATE 0.083% NEB 2.5 MG/3 ML AMPUL NEB PRN ×2 (11:50→20:21)
[2017-01-20] MEDS: BENZONATATE 100 MG CAPSULE PO PRN (13:22)
--- NOTE | 2017-01-20 18:29 | PDOC PROGRESS REPORT ---
Subjective Progress Note for:: 01/20/17 Subjective:: This is a follow-up visit for acute COPD exacerbation. Patient complains of not being able to sleep. Physical Exam Vital Signs: Temp Pulse Resp BP Pulse Ox 97.6 F 68 20 145/76 H 95 01/20/17 11:48 01/20/17 14:00 01/20/17 11:50 01/20/17 11:48 01/20/17 11:50 Intake & Output 01/19/17 01/20/17 01/21/17 06:59 06:59 06:59 Intake Total 571 851 840 Balance 571 851 840 Weight 76.2 kg 76.2 kg GENERAL: This is a well-developed and nourished appearing white male resting in bed currently in no acute distress. HEART: Regular rate and rhythm. No murmurs, rubs or gallops. LUNGS: expiratory wheeze bilaterally otherwise clear in the upper lung zuñiga with equal rise and fall of the chest. The patient is able to speak in full and complete sentences. ABDOMEN: Soft, nontender, nondistended with normoactive bowel sounds EXTREMETIES: No clubbing, cyanosis or edema. 2+ peripheral pulses bilaterally. NEURO: Awake, alert and oriented 3. Cranial nerves II through XII are grossly intact Results Laboratory Results: 01/18/17 05:44 01/18/17 05:44 01/18/17 11:24 Sputum Gram Stain - Final Impressions: Chest X-Ray 01/17/17 12:13 IMPRESSION: COPD. No acute radiographic finding. Interval aortic valve replacement. Assessment & Plan - Diagnosis (1) Haemophilus influenzae pneumonia Plan: Continue Levaquin. (2) COPD with exacerbation Is this a current diagnosis for this admission?: Yes Plan: Continue steroids. Solu-Medrol 40 every 12. Add as needed Robitussin and as needed Tessalon Perles. Continue as needed nebulizer treatments. Continue Spiriva and Symbicort (4) Hypertension Qualifiers: Hypertension type: essential hypertension Qualified Code(s): I10 - Essential (primary) hypertension Is this a current diagnosis for this admission?: Yes Plan: Continue metoprolol for now. (5) Tobacco abuse Is this a current diagnosis for this admission?: Yes Plan: Smoking cessation is advised.
[2017-01-21] MEDS: ALPRAZOLAM 0.5 MG TABLET PO PRN ×2 (02:54→11:34)
[2017-01-21] MEDS ORDERED: ZOLPIDEM TARTRATE 5 MG TABLET PO PRN (07:13)
[2017-01-21] MEDS: OXYCODONE HCL IR 5 MG TABLET PO PRN ×3 (07:40→21:01)
[2017-01-21 08:36] LABS: HEMATOCRIT 40.1 % (37.9-51.0); HEMOGLOBIN 12.9 g/dL (13.5-17.0); HGB HCT DIFFERENCE -1.4; MEAN CORPUSCULAR HEMOGLOBIN 26.4 pg (27.0-33.4); MEAN CORPUSCULAR HGB CONC 32.2 g/dL (32.0-36.0); MEAN CORPUSCULAR VOLUME 82 fl (80-97); RED BLOOD COUNT 4.89 10^6/uL (4.35-5.55); RED CELL DISTRIBUTION WIDTH 16.3 % (11.5-14.0); WHITE BLOOD COUNT 16.1 10^3/uL (4.0-10.5)
[2017-01-21 08:53] LABS: ANISOCYTOSIS 1+; BASOPHILS % (MANUAL) 0 % (0-2); EOSINOPHILS % (MANUAL) 0 % (0-6); LYMPHOCYTES % (MANUAL) 9 % (13-45); TOTAL CELLS COUNTED 100
[2017-01-21 09:05] LABS: ANION GAP 7 (5-19); BLOOD UREA NITROGEN 40 mg/dL (7-20); CALCIUM 9.7 mg/dL (8.4-10.2); CARBON DIOXIDE 38 mmol/L (22-30); CHLORIDE 100 mmol/L (98-107); CREATININE RESULT 0.84 mg/dL (0.52-1.25); GLUCOSE 121 mg/dL (75-110); MAGNESIUM 1.9 mg/dL (1.6-2.3); POTASSIUM 4.6 mmol/L (3.6-5.0); SODIUM 144.7 mmol/L (137-145)
[2017-01-21] MEDS: BUDESONIDE/FORMOTEROL 160-4.5 MCG 60 PUFF/6 GM MDI IH SCH ×2 (09:44→21:01)
[2017-01-21] MEDS: TIOTROPIUM BROMIDE DPI 5 CAP/KIT (18 MCG/CAP) IH SCH (09:44)
[2017-01-21] MEDS: ENOXAPARIN SODIUM INJ 40 MG/0.4 ML DISP.SYRIN SUBCUT SCH (09:44)
[2017-01-21] MEDS: METHYLPREDNISOLONE INJ 40 MG/1 ML SDV IV SCH ×2 (09:45→21:01)
[2017-01-21] MEDS: METOPROLOL TARTRATE 50 MG TABLET PO SCH ×2 (09:45→21:01)
[2017-01-21] MEDS: LEVOFLOXACIN 750 MG TABLET PO SCH (11:34)
--- NOTE | 2017-01-21 11:43 | PDOC PROGRESS REPORT ---
Subjective Progress Note for:: 01/21/17 Subjective:: This is a follow-up visit for acute COPD exacerbation. The patient slept a little bit better last night. He has concerns about being contagious around his grandchildren. I have explained to him that at this point I do not think that he is contagious. He has not been spiking fevers. Physical Exam Vital Signs: Temp Pulse Resp BP Pulse Ox 97.3 F 64 18 184/95 H 100 01/21/17 07:21 01/21/17 07:21 01/21/17 07:21 01/21/17 07:21 01/21/17 07:21 Intake & Output 01/20/17 01/21/17 01/22/17 06:59 06:59 06:59 Intake Total 851 1520 Balance 851 1520 Weight 76.2 kg 77.2 kg GENERAL: This is a well-developed and nourished appearing white male resting in bed currently in no acute distress. HEART: Regular rate and rhythm. No murmurs, rubs or gallops. LUNGS: Diminished breath sounds at the bases bilaterally with equal rise and fall of the chest. No wheezes today. The patient is able to speak in full and complete sentences. ABDOMEN: Soft, nontender, nondistended with normoactive bowel sounds EXTREMETIES: No clubbing, cyanosis or edema. 2+ peripheral pulses bilaterally. NEURO: Awake, alert and oriented 3. Cranial nerves II through XII are grossly intact Results Laboratory Results: 01/21/17 07:33 01/21/17 07:33 01/21/17 01/21/17 07:33 07:33 WBC 16.1 H RBC 4.89 Hgb 12.9 L Hct 40.1 MCV 82 MCH 26.4 L MCHC 32.2 RDW 16.3 H Plt Count 183 Seg Neutrophils % Not Reportable Lymphocytes % Not Reportable Monocytes % Not Reportable Eosinophils % Not Reportable Basophils % Not Reportable Absolute Neutrophils Not Reportable Absolute Lymphocytes Not Reportable Absolute Monocytes Not Reportable Absolute Eosinophils Not Reportable Absolute Basophils Not Reportable Sodium 144.7 Potassium 4.6 Chloride 100 Carbon Dioxide 38 H Anion Gap 7 BUN 40 H Creatinine 0.84 Est GFR ( Amer) > 60 Est GFR (Non-Af Amer) > 60 Glucose 121 H Calcium 9.7 Magnesium 1.9 01/18/17 11:24 Sputum Gram Stain - Final Impressions: Chest X-Ray 01/17/17 12:13 IMPRESSION: COPD. No acute radiographic finding. Interval aortic valve replacement. Assessment & Plan - Diagnosis (1) Acute and chronic respiratory failure Plan: Secondary to PNA and COPD exacerbation. Continue O2. Patient is at baseline. Continue Levaquin and ABX. Continue Solumedrol. (2) Haemophilus influenzae pneumonia Plan: Continue Levaquin. (3) COPD with exacerbation Is this a current diagnosis for this admission?: Yes Plan: Continue steroids. Solu-Medrol 40 every 12. Add as needed Robitussin and as needed Tessalon Perles. Continue as needed nebulizer treatments. Continue Spiriva and Symbicort (5) Hypertension Qualifiers: Hypertension type: essential hypertension Qualified Code(s): I10 - Essential (primary) hypertension Is this a current diagnosis for this admission?: Yes Plan: Continue metoprolol for now. (6) Tobacco abuse Is this a current diagnosis for this admission?: Yes Plan: Smoking cessation is advised. (7) Chronic pain Plan: Continue home pain medications. - Time Time Spent with patient: 15-24 minutes Within: within 48 hours
[2017-01-21] MEDS: BENZONATATE 100 MG CAPSULE PO PRN (14:57)
[2017-01-21] MEDS: ALBUTEROL SULFATE 0.083% NEB 2.5 MG/3 ML AMPUL NEB PRN (20:07)
[2017-01-22] MEDS: ALPRAZOLAM 0.5 MG TABLET PO PRN ×2 (04:36→21:37)
[2017-01-22] MEDS: OXYCODONE HCL IR 5 MG TABLET PO PRN ×5 (04:36→21:37)
[2017-01-22] MEDS ORDERED: DIPHENHYDRAMINE HCL 50 MG CAPSULE PO PRN (08:20)
[2017-01-22] MEDS: BUDESONIDE/FORMOTEROL 160-4.5 MCG 60 PUFF/6 GM MDI IH SCH ×2 (09:17→21:37)
[2017-01-22] MEDS: TIOTROPIUM BROMIDE DPI 5 CAP/KIT (18 MCG/CAP) IH SCH (09:17)
[2017-01-22] MEDS: ENOXAPARIN SODIUM INJ 40 MG/0.4 ML DISP.SYRIN SUBCUT SCH (09:18)
[2017-01-22] MEDS: METHYLPREDNISOLONE INJ 40 MG/1 ML SDV IV SCH ×2 (09:18→21:37)
[2017-01-22] MEDS: METOPROLOL TARTRATE 50 MG TABLET PO SCH ×2 (09:19→21:37)
[2017-01-22] MEDS: LEVOFLOXACIN 750 MG TABLET PO SCH (12:24)
--- NOTE | 2017-01-22 13:48 | PDOC PROGRESS REPORT ---
Subjective Progress Note for:: 01/22/17 Subjective:: Patient continues to complain of wheezing. Physical Exam Vital Signs: Temp Pulse Resp BP Pulse Ox 97.2 F 80 20 160/79 H 94 01/22/17 11:42 01/22/17 11:42 01/22/17 11:42 01/22/17 11:42 01/22/17 11:42 Intake & Output 01/21/17 01/22/17 01/23/17 06:59 06:59 06:59 Intake Total 1520 2821 Balance 1520 2821 Weight 77.2 kg 77.8 kg General appearance: PRESENT: no acute distress Eye exam: PRESENT: conjunctiva pink. ABSENT: scleral icterus Mouth exam: PRESENT: moist, tongue midline Neck exam: ABSENT: JVD Respiratory exam: PRESENT: wheezes - Bilateral expiratory wheezes in all lung zuñiga.. ABSENT: rales, rhonchi Cardiovascular exam: PRESENT: RRR. ABSENT: diastolic murmur, rubs, systolic murmur GI/Abdominal exam: PRESENT: normal bowel sounds, soft. ABSENT: distended, guarding, mass, organolmegaly, rebound, tenderness Extremities exam: ABSENT: calf tenderness, clubbing, pedal edema Neurological exam: PRESENT: alert, awake, oriented to person, oriented to place , oriented to time, oriented to situation, CN II-XII grossly intact. ABSENT: motor sensory deficit Psychiatric exam: PRESENT: appropriate affect Skin exam: PRESENT: dry, intact, warm. ABSENT: cyanosis, rash Results Laboratory Results: 01/21/17 07:33 01/21/17 07:33 01/18/17 11:24 Sputum Gram Stain - Final 01/18/17 11:24 Sputum Sputum Culture - Final Haemophilus Influenzae Pseudomonas Aeruginosa Normal Anabel Impressions: Chest X-Ray 01/17/17 12:13 IMPRESSION: COPD. No acute radiographic finding. Interval aortic valve replacement. Assessment & Plan - Diagnosis (1) Acute and chronic respiratory failure Is this a current diagnosis for this admission?: Yes Plan: Secondary to acute COPD exacerbation and also Haemophilus influenza infection. (2) COPD with exacerbation Is this a current diagnosis for this admission?: Yes Plan: We will treat with IV steroids and antibiotics as well as nebulizers. (3) Chronic pain Is this a current diagnosis for this admission?: Yes (4) H/O aortic valve replacement Is this a current diagnosis for this admission?: Yes (5) Haemophilus influenzae pneumonia Is this a current diagnosis for this admission?: Yes Plan: Patient has grown Haemophilus influenza from sputum cultures however did not have an obvious infiltrate on chest x-ray. (6) Hypertension Qualifiers: Hypertension type: essential hypertension Qualified Code(s): I10 - Essential (primary) hypertension Is this a current diagnosis for this admission?: Yes (7) Tobacco abuse Is this a current diagnosis for this admission?: Yes Plan: Patient is encouraged to quit - Time Time Spent with patient: 25-34 minutes - Inpatient Certification Medical Necessity: Need Close Monitoring Due to Risk of Patient Decompensation, Need for IV Antibiotics
[2017-01-22] MEDS: BENZONATATE 100 MG CAPSULE PO PRN (17:36)
[2017-01-22] MEDS: ALBUTEROL SULFATE 0.083% NEB 2.5 MG/3 ML AMPUL NEB PRN (17:37)
[2017-01-22] MEDS: GUAIFENESIN SYRP 200 MG/10 ML UDC PO PRN (21:37)
[2017-01-23] MEDS: BENZONATATE 100 MG CAPSULE PO PRN (01:34)
[2017-01-23] MEDS: OXYCODONE HCL IR 5 MG TABLET PO PRN ×3 (01:34→09:24)
[2017-01-23] MEDS: GUAIFENESIN SYRP 200 MG/10 ML UDC PO PRN (05:25)
[2017-01-23 06:51] LABS: ABSOLUTE BASOPHILS # (AUTO) 0.1 10^3/uL (0.0-0.2); ABSOLUTE LYMPHOCYTES (AUTO) 1.3 10^3/uL (0.5-4.7); ABSOLUTE MONOCYTES (AUTO) 0.7 10^3/uL (0.1-1.4); BASOPHILS % (AUTO) 0.5 % (0-2); HEMATOCRIT 39.6 % (37.9-51.0); HGB HCT DIFFERENCE -0.6; LYMPHOCYTES % (AUTO) 7.9 % (13-45); MEAN CORPUSCULAR HEMOGLOBIN 26.8 pg (27.0-33.4); MEAN CORPUSCULAR HGB CONC 32.9 g/dL (32.0-36.0); MEAN CORPUSCULAR VOLUME 82 fl (80-97); MONOCYTES % (AUTO) 3.9 % (3-13); RED BLOOD COUNT 4.86 10^6/uL (4.35-5.55); RED CELL DISTRIBUTION WIDTH 16.1 % (11.5-14.0); SEGMENTED NEUTROPHILS % (AUTO) 87.7 % (42-78); WHITE BLOOD COUNT 17.1 10^3/uL (4.0-10.5)
[2017-01-23 07:09] LABS: ANION GAP 11 (5-19); BLOOD UREA NITROGEN 41 mg/dL (7-20); CALCIUM 9.4 mg/dL (8.4-10.2); CARBON DIOXIDE 33 mmol/L (22-30); CHLORIDE 99 mmol/L (98-107); CREATININE RESULT 0.84 mg/dL (0.52-1.25); GLUCOSE 187 mg/dL (75-110); POTASSIUM 4.6 mmol/L (3.6-5.0)
[2017-01-23 08:29] VITALS: BP 158/96
[2017-01-23] MEDS: ENOXAPARIN SODIUM INJ 40 MG/0.4 ML DISP.SYRIN SUBCUT SCH (08:48)
[2017-01-23] MEDS: METHYLPREDNISOLONE INJ 40 MG/1 ML SDV IV SCH (08:49)
[2017-01-23] MEDS: BUDESONIDE/FORMOTEROL 160-4.5 MCG 60 PUFF/6 GM MDI IH SCH (09:24)
[2017-01-23] MEDS: TIOTROPIUM BROMIDE DPI 5 CAP/KIT (18 MCG/CAP) IH SCH (09:24)
[2017-01-23] MEDS: METOPROLOL TARTRATE 50 MG TABLET PO SCH (09:24)
--- NOTE | 2017-01-23 14:38 | PDOC DISCHARGE SUMMARY ---
General - Admit/Disc Date/PCP Admission Date/Primary Care Provider: 01/17/17 15:04 LINNEA LILLY MD Discharge Date: 01/23/17 - Discharge Diagnosis (1) Acute and chronic respiratory failure Is this a current diagnosis for this admission?: Yes Summary: Secondary to acute COPD exacerbation (2) COPD with exacerbation Is this a current diagnosis for this admission?: Yes (3) Chronic pain Is this a current diagnosis for this admission?: Yes (4) H/O aortic valve replacement Is this a current diagnosis for this admission?: Yes (5) Haemophilus influenzae pneumonia Is this a current diagnosis for this admission?: Yes Summary: The patient grew out Haemophilus influenza from sputum cultures but did not have an obvious infiltrate on chest x-ray. Patient has been treated as if he had pneumonia. (6) Hypertension Is this a current diagnosis for this admission?: Yes (7) Tobacco abuse Is this a current diagnosis for this admission?: Yes - Additional Information Resuscitation Status: Full Code Discharge Diet: Cardiac Discharge Activity: Activity As Tolerated Home Medications: Albuterol Sulfate [Ventolin Hfa] 2 puff IH Q6HP PRN 01/17/17 Budesonide/Formoterol Fumarate [Symbicort 160-4.5 Mcg Inhaler] 2 puff IH Q12 Citalopram Hydrobromide [Citalopram HBr] 30 mg PO DAILY 01/17/17 Metoprolol Tartrate 50 mg PO Q12 01/17/17 Oxycodone HCl 5 mg PO Q6HP PRN 01/17/17 Tiotropium [place] [Spiriva Handihaler 18 mcg/dose (30 Dose)] 1 puff IH DAILY Levofloxacin [Levaquin 750 mg Tablet] 750 mg PO DAILY@1100 #4 tablet 01/23/17 Prednisone 10 mg PO DAILY #39 tablet 01/23/17 History of Present Illness History of Present Illness: MAJOR GIBBONS is a 66 year old male who has a history of COPD and is on home oxygen who presents with worsening shortness of breath. Patient reports that over the last several days he became more short of breath and noticed he was wheezing also. He did increase his home oxygen but was continuing to have shortness of breath. His fiance is currently hospitalized with pneumonia. Patient had a chest x-ray that showed no obvious infiltrate. His oxygen saturations were down to 88%. Hospital Course Hospital Course: 66-year-old gentleman with a history of oxygen dependent COPD who presented with shortness of breath. The patient was found to have acute respiratory failure secondary to COPD exacerbation. He was treated with IV steroids, nebulizers and Levaquin. The patient had no obvious infiltrate on chest x-ray however grew out Haemophilus influenza from his sputum cultures. Patient was treated as if he is presumed to have pneumonia. He was started on Levaquin and steroids as above and improved. On the day of discharge she had a few scattered expiratory wheezes but overall felt well. His other medical problems all were stable during this hospitalization. He will be sent home on a prednisone taper as well as p.o. Levaquin. Physical Exam Vital Signs: Temp Pulse Resp BP Pulse Ox 97.5 F 74 18 158/96 H 96 01/23/17 08:28 01/23/17 08:28 01/23/17 08:28 01/23/17 08:28 01/23/17 08:28 Intake & Output 01/22/17 01/23/17 01/24/17 06:59 06:59 06:59 Intake Total 2821 996 Balance 2821 996 Weight 77.8 kg 77.8 kg General appearance: PRESENT: no acute distress Eye exam: PRESENT: conjunctiva pink. ABSENT: scleral icterus Mouth exam: PRESENT: moist, tongue midline Neck exam: ABSENT: JVD Respiratory exam: PRESENT: wheezes - Few scattered expiratory wheezes.. ABSENT : rales, rhonchi Cardiovascular exam: PRESENT: RRR. ABSENT: diastolic murmur, rubs, systolic murmur GI/Abdominal exam: PRESENT: normal bowel sounds, soft. ABSENT: distended, guarding, mass, organolmegaly, rebound, tenderness Extremities exam: ABSENT: calf tenderness, clubbing, pedal edema Neurological exam: PRESENT: alert, awake, oriented to person, oriented to place , oriented to time, oriented to situation, CN II-XII grossly intact. ABSENT: motor sensory deficit Psychiatric exam: PRESENT: appropriate affect Skin exam: PRESENT: dry, intact, warm. ABSENT: cyanosis, rash Results Laboratory Results: 01/23/17 06:08 01/23/17 06:08 01/23/17 01/23/17 06:08 06:08 WBC 17.1 H RBC 4.86 Hgb 13.0 L Hct 39.6 MCV 82 MCH 26.8 L MCHC 32.9 RDW 16.1 H Plt Count 195 Seg Neutrophils % 87.7 H Lymphocytes % 7.9 L Monocytes % 3.9 Eosinophils % 0.0 Basophils % 0.5 Absolute Neutrophils 15.0 H Absolute Lymphocytes 1.3 Absolute Monocytes 0.7 Absolute Eosinophils 0.0 Absolute Basophils 0.1 Sodium 143.0 Potassium 4.6 Chloride 99 Carbon Dioxide 33 H Anion Gap 11 BUN 41 H Creatinine 0.84 Est GFR ( Amer) > 60 Est GFR (Non-Af Amer) > 60 Glucose 187 H Calcium 9.4 01/18/17 11:24 Sputum Gram Stain - Final 01/18/17 11:24 Sputum Sputum Culture - Final Haemophilus Influenzae Pseudomonas Aeruginosa Normal Anabel Impressions: Chest X-Ray 01/17/17 12:13 IMPRESSION: COPD. No acute radiographic finding. Interval aortic valve replacement. Qualifiers PATEINT BEING DISCHARGED WITH ANY OF THE FOLLOWING DIAGNOSIS?: No Plan Discharge Plan: Patient is discharged home in stable condition. Will follow with primary care in 2 weeks. Time Spent: Greater than 30 Minutes
== END 2017-01-23 10:00 | disposition home or self-care (01) | DRG 190 ==
LOC: ER 11:58 → EH 15:04 → 5 18:38
PROVIDERS: ADMIT Hospitalist; ATTEND Hospitalist
PROC: 3E0F73Z Introduction of Anti-inflammatory into Respiratory Tract, Via Natural or Artificial Opening (ICD-10-PCS; principal; 2017-01-18)
DX: J44.1 Chronic obstructive pulmonary disease with (acute) exacerbation (principal); J14 Pneumonia due to Hemophilus influenzae; J96.21 Acute and chronic respiratory failure with hypoxia; G89.29 Other chronic pain; M54.9 Dorsalgia, unspecified; I10 Essential (primary) hypertension; F17.210 Nicotine dependence, cigarettes, uncomplicated; M19.90 Unspecified osteoarthritis, unspecified site; Z79.899 Other long term (current) drug therapy; Z99.81 Dependence on supplemental oxygen; Z95.3 Presence of xenogenic heart valve
CPT/HCPCS: 36415; 71020; 80048; 80053; 82550; 82803; 83735; 84484; 85025; 87070; 87077; 87186; 87205; 87804; 94640; 96372; 96374; 96375; 99285; J1650; J2060; J2270; J2405; J2920; J3490; J7512; J7620

== ENCOUNTER → 2017-02-01 | Outpatient (CLI) | payer MEDICARE, MEDICAID ==
--- NOTE | 2017-02-01 14:10 | RADIOLOGY REPORT (SQ) ---
EXAM DESCRIPTION: CT CHEST WITHOUT COMPLETED DATE/TIME: 02/01/2017 12:51 pm REASON FOR STUDY: MEDIASTINAL LYMPHADENOPATHY R59.0 LOCALIZED ENLARGED LYMPH NODES COMPARISON: 03/23/2016 and 02/20/2016. TECHNIQUE: CT scan performed of the chest without intravenous contrast. Images reviewed with lung, soft tissue and bone windows. Reconstructed coronal and sagittal MPR images reviewed. All images st ored on PACS. All CT scanners at this facility use dose modulation, iterative reconstruction, and/or weight based d osing when appropriate to reduce radiation dose to as low as reasonably achievable (ALARA). [facility]: Dose Right [facility]: CareDose [facility]: Dose Right [facility]: Teradose 4D [facility]: AgilOne RADIATION DOSE: CT Rad equipment meets quality standard of care and radiation dose reduction techniq ues were employed. CTDIvol: 6.0 mGy. DLP: 240 mGy-cm. mGy. LIMITATIONS: No technical limitations. FINDINGS: LUNGS AND PLEURA: Improved aeration. Previously seen areas of nodularity and infiltrate h ave cleared. Currently no focal infiltrates. No nodules or masses. Mild scarring in the lung bases . Emphysematous changes in the upper lobes. No pleural effusion. HILAR AND MEDIASTINAL STRUCTURES: Previously seen mediastinal adenopathy has improved. Previously se en enlarged lymph nodes have decreased in size. Currently the largest lymph node in the left paratra cheal region measures 9 mm with prior measurement of 14 mm and the largest lymph node anterior to the bryson measures 9 mm with prior measurement of 15 mm. HEART AND VASCULAR STRUCTURES: No aneurysm. No pericardial effusion. UPPER ABDOMEN: No significant findings. Limited exam. THYROID AND OTHER SOFT TISSUES: No masses. No adenopathy. BONES: No significant finding. HARDWARE: Sternotomy wires and prosthetic valve. OTHER: No other significant findings. IMPRESSION: 1. IMPROVED APPEARANCE OF THE CHEST. PREVIOUSLY SEEN AREAS OF INFILTRATE AND NODULARITY HAVE RESOLVE D. PREVIOUSLY SEEN MEDIASTINAL ADENOPATHY HAS ALSO IMPROVED. CURRENTLY NO PATHOLOGICALLY ENLARGED L YMPH NODES. 2. EMPHYSEMATOUS CHANGES IN THE UPPER LOBES. MILD SCARRING IN THE LUNG BASES. TECHNICAL DOCUMENTATION: JOB ID: [id number] Quality ID # [id number]: Final reports with documentation of one or more dose reduction techniques (e.g., Au tomated exposure control, adjustment of the mA and/or kV according to patient size, use of iterative reconstruction technique) 2010 [employer]- All Rights Reserved
== END ==
LOC: RAD 12:38
PROVIDERS: ATTEND Internal Medicine Critical Care Medicine
DX: R59.0 Localized enlarged lymph nodes (principal)
CPT/HCPCS: 71250

== ENCOUNTER → 2017-05-30 | Outpatient (CLI) | payer MEDICARE, MEDICAID ==
--- NOTE | 2017-05-30 12:04 | RADIOLOGY REPORT (SQ) ---
EXAM DESCRIPTION: CHEST PA/LAT COMPLETED DATE/TIME: 05/30/2017 11:12 am REASON FOR STUDY: COPD (J44.9) COMPARISON: 01/17/2017 EXAM PARAMETERS: NUMBER OF VIEWS: two views TECHNIQUE: Digital Frontal and Lateral radiographic views of the chest acquired. RADIATION DOSE: NA LIMITATIONS: none FINDINGS: LUNGS AND PLEURA: COPD. No opacities, masses or pneumothorax. No pleural effusion. MEDIASTINUM AND HILAR STRUCTURES: No masses or contour abnormalities. HEART AND VASCULAR STRUCTURES: Heart normal size. No evidence for failure. BONES: No acute findings. HARDWARE: Prosthetic heart valve. OTHER: No other significant finding. IMPRESSION: NO ACUTE RADIOGRAPHIC FINDING IN THE CHEST. TECHNICAL DOCUMENTATION: JOB ID: [id number] [employer]- All Rights Reserved Reading location - IP/workstation name: [email or web address]
== END ==
LOC: RAD 10:57
PROVIDERS: ATTEND Family Medicine
DX: J44.9 Chronic obstructive pulmonary disease, unspecified (principal)
CPT/HCPCS: 71046

== ENCOUNTER → 2017-08-08 | Outpatient (CLI) | payer MEDICARE, MEDICAID ==
--- NOTE | 2017-08-08 09:24 | RADIOLOGY REPORT (SQ) ---
EXAM DESCRIPTION: U/S ABDOMEN LIMITED W/O DOP COMPLETED DATE/TIME: 08/08/2017 8:56 am REASON FOR STUDY: CHRONIC VIRAL HEPATITIS C, ABNORMAL LFT'S B18.2 CHRONIC VIRAL HEPATITIS C R94.5 ABNORMAL RESULTS OF LIVER FUNCTION STUDIES COMPARISON: None. TECHNIQUE: Dynamic and static grayscale images acquired of the abdomen and recorded on PACS. Additio nal selected color Doppler and spectral images recorded. LIMITATIONS: None. FINDINGS: PANCREAS: No masses. There is some prominence the pancreatic duct measuring [address] LIVER: No masses. Echotexture normal. LIVER VASCULATURE: Normal directional flow of the main portal vein. GALLBLADDER: No stones. Normal wall thickness. No pericholecystic fluid. ULTRASOUND-DETECTED VILLA'S SIGN: Negative. INTRAHEPATIC DUCTS AND COMMON DUCT: CBD and intrahepatic ducts normal caliber. No filling defects. INFERIOR VENA CAVA: Normal flow. AORTA: No aneurysm. RIGHT KIDNEY: Normal size. Normal echogenicity. No solid or suspicious masses. No hydronephrosis. No calcifications. PERITONEAL AND RIGHT PLEURAL SPACE: No ascites or effusions. OTHER: No other significant findings. IMPRESSION: No dilated bile ducts are identified. No gallstones are identified. There is some prom inence of the pancreatic duct measuring 6 mm without a definite pancreatic mass being identified. Ot her findings as noted above TECHNICAL DOCUMENTATION: JOB ID: [id number]- All Rights Reserved Reading location - IP/workstation name: [email or web address]
[2017-08-08 09:25] LABS: ABSOLUTE BASOPHILS # (AUTO) 0.1 10^3/uL (0.0-0.2); ABSOLUTE EOSINOPHILS # (AUTO) 0.2 10^3/uL (0.0-0.6); ABSOLUTE LYMPHOCYTES (AUTO) 2.5 10^3/uL (0.5-4.7); ABSOLUTE MONOCYTES (AUTO) 0.6 10^3/uL (0.1-1.4); ABSOLUTE NEUT (AUTO) 3.3 10^3/uL (1.7-8.2); BASOPHILS % (AUTO) 1.3 % (0-2); EOSINOPHILS % (AUTO) 3.5 % (0-6); HEMATOCRIT 44.5 % (37.9-51.0); HEMOGLOBIN 14.7 g/dL (13.5-17.0); LYMPHOCYTES % (AUTO) 37.5 % (13-45); MEAN CORPUSCULAR HEMOGLOBIN 26.9 pg (27.0-33.4); MEAN CORPUSCULAR VOLUME 82 fl (80-97); MONOCYTES % (AUTO) 9.2 % (3-13); PLATELET COUNT 123 10^3/uL (150-450); RED BLOOD COUNT 5.46 10^6/uL (4.35-5.55); RED CELL DISTRIBUTION WIDTH 14.8 % (11.5-14.0); SEGMENTED NEUTROPHILS % (AUTO) 48.5 % (42-78); TOTAL CELLS COUNTED % (AUTO) 100 %; WHITE BLOOD COUNT 6.7 10^3/uL (4.0-10.5)
[2017-08-08 09:43] LABS: ALANINE AMINOTRANSFERASE 69 U/L (21-72); ALBUMIN 4.1 g/dL (3.5-5.0); ALKALINE PHOSPHATASE 56 U/L (38-126); ASPARTATE AMINO TRANSFERASE 53 U/L (17-59); BILIRUBIN,DIRECT 0.3 mg/dL (0.0-0.4); BILIRUBIN,TOTAL 0.7 mg/dL (0.2-1.3); TOTAL PROTEIN 7.1 g/dL (6.3-8.2)
[2017-08-09 10:39] LABS: HEPATITS B SURFACE ANTIGEN Negative (Negative)
[2017-08-09 16:29] LABS: HEPATITIS B CORE AB TOT Positive (Negative); HEPATITIS B SURFACE AB QUAL Non Reactive (.)
[2017-08-09 21:08] LABS: HEPATITIS C QUANTITATION 2540000 IU/mL (.)
[2017-08-10 06:38] LABS: HCV FIBROSURE ALT P5P 66 IU/L (0-55); HCV FIBROSURE GGT 40 IU/L (0-65); HCV FIBROSURE HAPTOGLOBIN 84 mg/dL (34-200); NECROINFLAM ACTIVITY GRADE A1-A2 (.)
== END ==
LOC: RAD 08:17
PROVIDERS: ATTEND Internal Medicine Gastroenterology
DX: B18.2 Chronic viral hepatitis C (principal); R94.5 Abnormal results of liver function studies; B19.9 Unspecified viral hepatitis without hepatic coma
CPT/HCPCS: 36415; 76705; 80076; 81270; 82172; 82247; 82977; 83010; 83883; 84460; 85025; 86704; 86706; 87340; 87522

== ENCOUNTER → 2017-09-16 | Outpatient (CLI) | payer MEDICARE, MEDICAID ==
--- NOTE | 2017-09-16 14:58 | RADIOLOGY REPORT (SQ) ---
EXAM DESCRIPTION: CT ABDOMEN COMBO COMPLETED DATE/TIME: 09/16/2017 2:08 pm REASON FOR STUDY: CHRONIC VIRAL HEPATITIS C/DIEASE OF PANCREAS/ABN F B18.2 CHRONIC VIRAL HEPATITIS C K86.9 DISEASE OF PANCREAS, UNSPECIFIED R93.2 ABNORMAL FINDINGS ON DX IMAGING OF LIVER AND BILIARY T COMPARISON: ABDOMINAL ULTRASOUND 08/08/2017 PET-CT 03/23/2016 CT ABDOMEN PELVIS 05/26/2013 TECHNIQUE: CT scan of the abdomen performed with and without intravenous contrast, and with oral con trast. Contrasted imaging performed using helical scanning technique with dynamic intravenous contras t injection. Images reviewed with lung, soft tissue, and bone windows. Reconstructed coronal and sagi ttal MPR images reviewed. Delayed images for evaluation of the urinary system also acquired and evalu ated. All images stored on PACS. All CT scanners at this facility use dose modulation, iterative reconstruction, and/or weight based d osing when appropriate to reduce radiation dose to as low as reasonably achievable (ALARA). [facility]: Dose Right [facility]: CareDose [facility]: Dose Right [facility]: Teradose 4D [facility]: Anteryon CONTRAST TYPE AND DOSE: contrast/concentration: Isovue 370.00 mg/ml; Total Contrast Delivered: 49.0 ml; Total Saline Delivered: 79.0 ml RENAL FUNCTION: Creatinine 0.8 RADIATION DOSE: CT Rad equipment meets quality standard of care and radiation dose reduction techniq ues were employed. CTDIvol: 2.8 - 25.4 mGy. DLP: 1094 mGy-cm.. LIMITATIONS: None. FINDINGS: NONCONTRASTED IMAGING: No significant renal or bladder calcifications. No other significan t organ calcifications. POSTCONTRASTED IMAGING: LOWER CHEST: No significant findings. No nodules or infiltrates. LIVER: Normal size. No masses. No dilated ducts. SPLEEN: Normal size. No focal lesions. PANCREAS: There is a 1.4 cm cyst at the pancreatic head which is a diverticulum off the pancreatic du ct. This is unchanged from CT abdomen pelvis 05/26/2013. Remainder the pancreatic duct along the bod y and tail of the pancreas measures 5 mm in diameter, similar compared to 05/26/2013. No pancreatic m asses or abnormal enhancement. No peripancreatic inflammatory change or retroperitoneal fluid/ pseud ocyst. GALLBLADDER: No identified stones by CT criteria. No inflammatory changes to suggest cholecystitis. ADRENAL GLANDS: No significant masses or asymmetry. RIGHT KIDNEY AND URETER: No solid masses. No significant calcifications. No hydronephrosis or hyd roureter. LEFT KIDNEY AND URETER: No solid masses. No significant calcifications. No hydronephrosis or hydr oureter. AORTA AND VESSELS: No aneurysm. No dissection. Renal arteries, SMA, celiac without stenosis. RETROPERITONEUM: No retroperitoneal adenopathy, hemorrhage or masses. BOWEL AND PERITONEAL CAVITY: No masses or inflammatory changes. No free fluid or peritoneal masses. APPENDIX: Not in the field of view ABDOMINAL WALL: No masses. No hernias. BONES: No significant or acute findings. OTHER: No other significant finding. IMPRESSION: Stable ectasia of the main pancreatic duct as compared to 2014 13 to 14 mm cyst at the pancreatic head actually a diverticulum off of the pancreatic duct. This is stable compared to 2014. TECHNICAL DOCUMENTATION: JOB ID: [id number] Quality ID # [id number]: Final reports with documentation of one or more dose reduction techniques (e.g., Au tomated exposure control, adjustment of the mA and/or kV according to patient size, use of iterative reconstruction technique) 2010 [employer] All Rights Reserved Reading location - IP/workstation name: [email or web address]
== END ==
LOC: RAD 13:23
PROVIDERS: ATTEND Internal Medicine Gastroenterology
DX: B18.2 Chronic viral hepatitis C (principal); K86.9 Disease of pancreas, unspecified; R93.2 Abnormal findings on diagnostic imaging of liver and biliary tract; K86.2 Cyst of pancreas
CPT/HCPCS: 74170; 82565

== ENCOUNTER → 2017-09-30 | Outpatient (CLI) | payer MEDICARE, MEDICAID | LOC: LAB 10:00 | PROVIDERS: ATTEND Internal Medicine Gastroenterology | DX: R94.5 Abnormal results of liver function studies (principal) | CPT/HCPCS: 36415; 87517 ==

== ENCOUNTER → 2018-01-21 | Outpatient (CLI) | payer MEDICARE, MEDICAID ==
--- NOTE | 2018-01-21 15:32 | RADIOLOGY REPORT (SQ) ---
EXAM DESCRIPTION: CHEST 2 VIEWS COMPLETED DATE/TIME: 01/21/2018 2:33 pm REASON FOR STUDY: CHRONIC OBSTRUCTIVE PULMONARY DISEASE W (ACUTE) EXACERBATION COMPARISON: 05/30/2017 EXAM PARAMETERS: NUMBER OF VIEWS: two views TECHNIQUE: Digital Frontal and Lateral radiographic views of the chest acquired. RADIATION DOSE: NA LIMITATIONS: none FINDINGS: LUNGS AND PLEURA: The lungs are hyperexpanded. There is no infiltrate, effusion, or mass. MEDIASTINUM AND HILAR STRUCTURES: No masses or contour abnormalities. HEART AND VASCULAR STRUCTURES: Heart normal size. No evidence for failure. BONES: No acute findings. HARDWARE: Sternotomy wires. Heart valve. OTHER: No other significant finding. IMPRESSION: Chronic lung changes with no acute cardiopulmonary disease. TECHNICAL DOCUMENTATION: JOB ID: [id number] [employer]- All Rights Reserved Reading location - IP/workstation name: [email or web address]
== END ==
LOC: RAD 14:00
PROVIDERS: ATTEND Internal Medicine Gastroenterology
DX: B19.20 Unspecified viral hepatitis C without hepatic coma (principal); J44.1 Chronic obstructive pulmonary disease with (acute) exacerbation; R05 Cough
CPT/HCPCS: 36415; 71046; 87517

== ENCOUNTER 2018-04-27 16:57 | Emergency (ER) | payer MEDICARE, MEDICAID ==
[2018-04-27] MEDS ORDERED: METHYLPREDNISOLONE INJ 125 MG/2 ML SDV IV ONE (18:06)
[2018-04-27] MEDS ORDERED: BUDESONIDE NEB 0.5 MG/2 ML AMPUL NEB ONE ×2 (18:06→20:35)
[2018-04-27] MEDS ORDERED: IPRATROPIUM/ALBUTEROL 0.5-2.5 MG/3 ML AMPUL NEB ONE (18:06)
--- NOTE | 2018-04-27 18:06 | ER Document Report ---
ED Medical Screen (RME) - General Chief Complaint: Painful Cough Stated Complaint: WEAKNESS, DIFFICULTY BREATHING Time Seen by Provider: 04/27/18 18:01 Primary Care Provider: PARAG HOANG MD [Primary Care Provider] - Follow up as needed Notes: Patient is a 67 year old male that presents to the emergency department for chief complaint of shortness of breath and cough, patient has history of COPD, on 2 L nasal cannula 24 hours a day. His roommate has had similar symptoms, with a productive cough. ROS: Other than noted above, the 12 point review of systems was reviewed with the patient and were negative, all pertinent findings are included in the HPI. PHYSICAL EXAMINATION: Vital signs reviewed. GENERAL: Well-appearing, well-nourished and in no acute distress. HEAD: Atraumatic, normocephalic. EYES: Pupils equal round extraocular movements intact, conjunctiva are normal. ENT: Nares patent NECK: Normal range of motion CV: Heart regular rate and rhythm LUNGS: Diffuse expiratory wheezing noted throughout all lung zuñiga, no acute respiratory distress at this time Musculoskeletal: Normal range of motion NEUROLOGICAL: Normal speech PSYCH: Normal mood, normal affect. MDM: Patient seen and examined for rapid initial assessment. Vital signs reviewed. A comprehensive ED assessment and evaluation of the patient, analysis of test results and completion of the medical decision making process will be conducted by additional ED providers. *Note is created using voice recognition software and may contain spelling, syntax or grammatical errors. TRAVEL OUTSIDE OF THE [place] IN LAST 30 DAYS: No - Related Data Allergies/Adverse Reactions: No Known Allergies Allergy (Verified 01/17/17 12:21) Past Medical History - Past Medical History Cardiac Medical History: Reports: Hx Hypertension, Hx Heart Murmur - IN CHILDHOOD Denies: Hx Coronary Artery Disease, Hx Heart Attack Pulmonary Medical History: Reports: Hx Asthma, Hx Bronchitis, Hx COPD Denies: Hx Pneumonia Neurological Medical History: Denies: Hx Cerebrovascular Accident, Hx Seizures Renal/ Medical History: Denies: Hx Peritoneal Dialysis Musculoskeltal Medical History: Reports Hx Arthritis Psychiatric Medical History: Reports: Hx Depression Past Surgical History: Reports: Hx Abdominal Surgery - inguinal hernia repair, Hx Cardiac Surgery - valve replacement (pig valve), Hx Herniorrhaphy, Hx Inguinal Hernia, Hx Valve Replacement - Aortic pig valve - Immunizations Hx Diphtheria, Pertussis, Tetanus Vaccination: Yes - STATES ALMOST 10 YEARS AGO History of Influenza Vaccine for 12/2016 - 05/2017 Season: Yes Influenza Administration Date for 12/2016 - 05/2017 Season: 01/03/17 Physical Exam - Vital signs Vitals: Temp Pulse Resp BP Pulse Ox 98.2 F 67 20 176/98 H 96 04/27/18 17:32 04/27/18 17:32 04/27/18 17:32 04/27/18 17:32 04/27/18 17:32 Course - Vital Signs Vital signs: Temp Pulse Resp BP Pulse Ox 98.2 F 67 20 176/98 H 96 04/27/18 17:32 04/27/18 17:32 04/27/18 17:32 04/27/18 17:32 04/27/18 17:32 Doctor's Discharge - Discharge Referrals: PARAG HOANG MD [Primary Care Provider] - Follow up as needed
[2018-04-27 19:03] LABS: ABSOLUTE BASOPHILS # (AUTO) 0.1 10^3/uL (0.0-0.2); ABSOLUTE EOSINOPHILS # (AUTO) 0.2 10^3/uL (0.0-0.6); ABSOLUTE LYMPHOCYTES (AUTO) 3.3 10^3/uL (0.5-4.7); ABSOLUTE MONOCYTES (AUTO) 0.6 10^3/uL (0.1-1.4); ABSOLUTE NEUT (AUTO) 3.3 10^3/uL (1.7-8.2); BASOPHILS % (AUTO) 0.9 % (0-2); EOSINOPHILS % (AUTO) 2.8 % (0-6); HEMATOCRIT 42.3 % (37.9-51.0); HEMOGLOBIN 14.3 g/dL (13.5-17.0); LYMPHOCYTES % (AUTO) 43.9 % (13-45); MEAN CORPUSCULAR HEMOGLOBIN 28.3 pg (27.0-33.4); MEAN CORPUSCULAR HGB CONC 33.8 g/dL (32.0-36.0); MEAN CORPUSCULAR VOLUME 84 fl (80-97); MONOCYTES % (AUTO) 8.6 % (3-13); PLATELET COUNT 159 10^3/uL (150-450); RED BLOOD COUNT 5.05 10^6/uL (4.35-5.55); RED CELL DISTRIBUTION WIDTH 14.1 % (11.5-14.0); SEGMENTED NEUTROPHILS % (AUTO) 43.8 % (42-78); TOTAL CELLS COUNTED % (AUTO) 100 %; WHITE BLOOD COUNT 7.5 10^3/uL (4.0-10.5)
[2018-04-27 19:21] LABS: ALANINE AMINOTRANSFERASE 24 U/L (21-72); ALBUMIN 4.3 g/dL (3.5-5.0); ALKALINE PHOSPHATASE 46 U/L (38-126); ANION GAP 8 (5-19); ASPARTATE AMINO TRANSFERASE 20 U/L (17-59); BILIRUBIN,DIRECT 0.2 mg/dL (0.0-0.4); BILIRUBIN,TOTAL 0.5 mg/dL (0.2-1.3); BLOOD UREA NITROGEN 29 mg/dL (7-20); CALCIUM 9.8 mg/dL (8.4-10.2); CARBON DIOXIDE 35 mmol/L (22-30); CHLORIDE 102 mmol/L (98-107); CREATINE KINASE 37 U/L (55-170); GLUCOSE 116 mg/dL (75-110); POTASSIUM 4.2 mmol/L (3.6-5.0); TOTAL PROTEIN 7.4 g/dL (6.3-8.2)
[2018-04-27 19:26] LABS: A TYPE INFLUENZA AG NEGATIVE (NEGATIVE); B INFLUENZA AG NEGATIVE (NEGATIVE)
--- NOTE | 2018-04-27 19:32 | RADIOLOGY REPORT (SQ) ---
EXAM DESCRIPTION: CHEST SINGLE VIEW COMPLETED DATE/TIME: 04/27/2018 7:20 pm REASON FOR STUDY: cough, shortness of breath COMPARISON: 01/21/2018 and earlier EXAM PARAMETERS: NUMBER OF VIEWS: One view. TECHNIQUE: Single frontal radiographic view of the chest acquired. RADIATION DOSE: NA LIMITATIONS: None. FINDINGS: LUNGS AND PLEURA: No opacities, masses or pneumothorax. No pleural effusion. Unchanged rel ative lucency of the peripheral right lower lobe. Blunting of the right costophrenic angle, likely r epresenting scarring. MEDIASTINUM AND HILAR STRUCTURES: No masses. Contour normal. HEART AND VASCULAR STRUCTURES: Heart normal in size. Normal vasculature. BONES: No acute findings. HARDWARE: Postsurgical changes of the mediastinum. OTHER: No other significant finding. IMPRESSION: NO ACUTE RADIOGRAPHIC FINDING IN THE CHEST. TECHNICAL DOCUMENTATION: JOB ID: [id number] [employer]- All Rights Reserved Reading location - IP/workstation name: [email or web address]
[2018-04-27 19:33] LABS: CREATINE KINASE MB 0.72 ng/mL (<4.55); TROPONIN I < 0.012 ng/mL
[2018-04-27] MEDS ORDERED: OXYCODONE-ACETAMINOPHEN 5-325 MG TABLET PO ONE (21:25)
[2018-04-27] MEDS ORDERED: PREDNISONE 20 MG TABLET PO ONE (21:25)
--- NOTE | 2018-04-27 21:32 | ER Document Report ---
ED General - General Chief Complaint: Painful Cough Stated Complaint: WEAKNESS, DIFFICULTY BREATHING Time Seen by Provider: 04/27/18 18:01 Primary Care Provider: PARAG HOANG MD [ACTIVE STAFF] - Follow up as needed Notes: Patient is a 67-year-old male with a past medical history of COPD with oxygen dependence, hypertension, active smoker who presents complaining of 3-4 days of cough, increased shortness of breath and sputum production. Has been using his home inhalers and oxygen at home moderate improvement of symptoms. Nothing seems to worsen his symptoms. States this feels similar to COPD exacerbations secondary to viral illnesses that he has had in the past. Has not seen his primary doctor regarding today's concerns. Symptoms started gradually, have overall been improving since onset. TRAVEL OUTSIDE OF THE [place] IN LAST 30 DAYS: No - Related Data Allergies/Adverse Reactions: No Known Allergies Allergy (Verified 01/17/17 12:21) Past Medical History - General Information source: Patient - Social History Smoking Status: Current Every Day Smoker Frequency of alcohol use: None Drug Abuse: None Lives with: Spouse/Significant other Family History: Reviewed & Not Pertinent Patient has suicidal ideation: No Patient has homicidal ideation: No - Past Medical History Cardiac Medical History: Reports: Hx Hypertension, Hx Heart Murmur - IN CHILDHOOD Denies: Hx Coronary Artery Disease, Hx Heart Attack Pulmonary Medical History: Reports: Hx Asthma, Hx Bronchitis, Hx COPD Denies: Hx Pneumonia Neurological Medical History: Denies: Hx Cerebrovascular Accident, Hx Seizures Renal/ Medical History: Denies: Hx Peritoneal Dialysis Musculoskeletal Medical History: Reports Hx Arthritis Psychiatric Medical History: Reports: Hx Depression Past Surgical History: Reports: Hx Abdominal Surgery - inguinal hernia repair, Hx Cardiac Surgery - valve replacement (pig valve), Hx Herniorrhaphy, Hx Inguinal Hernia, Hx Valve Replacement - Aortic pig valve - Immunizations Hx Diphtheria, Pertussis, Tetanus Vaccination: Yes - STATES ALMOST 10 YEARS AGO Review of Systems - Review of Systems Notes: Constitutional: Negative for fever. HENT: Negative for sore throat. Eyes: Negative for visual changes. Cardiovascular: Negative for chest pain. Respiratory: Positive shortness of breath Gastrointestinal: Negative for abdominal pain, vomiting or diarrhea. Genitourinary: Negative for dysuria. Musculoskeletal: Negative for back pain. Skin: Negative for rash. Neurological: Negative for headaches, weakness or numbness. 10 point ROS negative except as marked above and in HPI. Physical Exam - Vital signs Vitals: Temp Pulse Resp BP Pulse Ox 98.2 F 68 20 176/98 H 96 04/27/18 17:31 04/27/18 17:31 04/27/18 17:31 04/27/18 17:31 04/27/18 17:31 Interpretation: Hypertensive Notes: PHYSICAL EXAMINATION: GENERAL: Well-appearing, well-nourished and in no acute distress. HEAD: Atraumatic, normocephalic. EYES: Pupils equal round and reactive to light, extraocular movements intact, sclera anicteric, conjunctiva are normal. ENT: nares patent, oropharynx clear without exudates. Moist mucous membranes. NECK: Normal range of motion, supple without lymphadenopathy LUNGS: Breath sounds clear to auscultation bilaterally and equal. Faint expiratory wheezing in all lung zuñiga HEART: Regular rate and rhythm without murmurs ABDOMEN: Soft, nontender, normoactive bowel sounds. No guarding, no rebound. No masses appreciated. EXTREMITIES: Normal range of motion, no pitting or edema. No cyanosis. NEUROLOGICAL: No focal neurological deficits. Moves all extremities spontaneously and on command. PSYCH: Normal mood, normal affect. SKIN: Warm, Dry, normal turgor, no rashes or lesions noted. Course - Re-evaluation Re-evalutation: 04/27/18 21:30 Patient presents with a mild exacerbation of their baseline COPD. Mild wheezing at time of presentation but vitals do not show significant hypoxemia or tachypnea. No retractions. Patient did clinically improve after receiving ne bulizers here in the emergency department. Chest x-ray without evidence of an acute pneumonia. Laboratories do not show acute kidney injury or significant leukocytosis. Patient able to ambulate without any respiratory distress. Based on patient's overall reassuring assessment, I believe they are stable for outpatient management with steroids. Patient has nebulizers at home. I do not suspect an acute alternative pathology at this time based on history and exam including acute pulmonary embolus, ACS, pneumothorax, or aortic dissection. At this time will discharge with return precautions and follow-up recommendations. Verbal discharge instructions given a the bedside and opportunity for questions given. Medication warnings reviewed. Patient is in agreement with this plan and has verbalized understanding of return precautions and the need for primary care follow-up in the next 24-72 hours. - Vital Signs Vital signs: Temp Pulse Resp BP Pulse Ox 97.9 F 76 20 167/91 H 96 04/27/18 21:42 04/27/18 21:42 04/27/18 21:42 04/27/18 21:42 04/27/18 21:42 - Laboratory Result Diagrams: 04/27/18 18:47 04/27/18 18:47 Laboratory results interpreted by me: 04/27/18 04/27/18 18:47 18:47 RDW 14.1 H Carbon Dioxide 35 H BUN 29 H Glucose 116 H Creatine Kinase 37 L - Diagnostic Test Radiology reviewed: Image reviewed, Reports reviewed Radiology results interpreted by me: 04/28/18 04:15 Chest x-ray: No acute infiltrate or pneumothorax Discharge - Discharge Clinical Impression: COPD with exacerbation, Tobacco abuse Chronic pain Qualifiers: Chronic pain type: other chronic pain Qualified Code(s): G89.29 - Other chronic pain Condition: Good Disposition: HOME, SELF-CARE Additional Instructions: You were seen for a COPD exacerbation. Your symptoms improved with treatment here in the emergency department. However, it is very important that you return to the emergency department immediately if you began to have worsening difficulty breathing that does not respond to your normal home nebulizers. You are also being sent home on a five-day course of steroids that you should start taking tomorrow. Please also follow closely with your primary care physician. You should eturn to emergency department if you develop fever greater than 101, persistent cough, persistent vomiting, pass out, or any other symptoms that are concerning to you. Prescriptions: Prednisone [Deltasone 20 mg Tablet] 2 tab PO DAILY 5 Days tablet Referrals: PARAG HOANG MD [ACTIVE STAFF] - Follow up as needed
[2018-04-27 21:46] VITALS: BP 167/91
--- NOTE | 2018-04-27 22:29 | EKG REPORT ---
SEVERITY:- ABNORMAL ECG - SINUS RHYTHM FIRST DEGREE AV BLOCK PROBABLE INFERIOR INFARCT, OLD LATERAL LEADS ARE ALSO INVOLVED : Confirmed by: Eduin Escobar MD 27-Apr-2018 22:28:20
== END 2018-04-27 21:50 | disposition home or self-care (01) ==
LOC: ER 16:57
DX: J44.1 Chronic obstructive pulmonary disease with (acute) exacerbation (principal); Z99.81 Dependence on supplemental oxygen; F17.200 Nicotine dependence, unspecified, uncomplicated; G89.29 Other chronic pain; R05 Cough; R06.02 Shortness of breath; I10 Essential (primary) hypertension
CPT/HCPCS: 93005; 94640 ×2; 99284; 96374; 36415; 82553; 82550; 85025; 80053; 84484; 87804; 71045; 93010; J2930; A9270 ×3; J7512; J7620

== ENCOUNTER → 2019-11-23 | Outpatient (CLI) | payer MEDICARE, MEDICAID ==
--- NOTE | 2019-11-23 15:37 | RADIOLOGY REPORT (SQ) ---
EXAM DESCRIPTION: CT CHEST WITHOUT IMAGES COMPLETED DATE/TIME: 11/23/2019 3:20 pm REASON FOR STUDY: R91.1 SOLITARY PULMONARY NODULE R91.1 SOLITARY PULMONARY NODULE R91.8 OTHER NONS PECIFIC ABNORMAL FINDING OF LUNG FIELD Z87.01 PERSONAL HISTORY OF PNEUMONIA (RECURRENT) COMPARISON: 02/01/2017 TECHNIQUE: CT scan performed of the chest without intravenous contrast. Images reviewed with lung, soft tissue and bone windows. Reconstructed coronal and sagittal MPR images reviewed. All images st ored on PACS. All CT scanners at this facility use dose modulation, iterative reconstruction, and/or weight based d osing when appropriate to reduce radiation dose to as low as reasonably achievable (ALARA). [facility]: Dose Right [facility]: CareDose [facility]: Dose Right [facility]: Teradose 4D [facility]: Atlas Powered RADIATION DOSE: CT Rad equipment meets quality standard of care and radiation dose reduction techniq ues were employed. CTDIvol: 8.5 mGy. DLP: 389 mGy-cm. mGy. LIMITATIONS: No technical limitations. FINDINGS: LUNGS AND PLEURA: Stable bilateral centrilobular emphysematous changes. No consolidation or pleural effusions. No suspicious pulmonary nodules. Stable scarring in the periphery of the righ t lower lobe. HILAR AND MEDIASTINAL STRUCTURES: No identified masses or abnormal nodes. No obvious aneurysm. HEART AND VASCULAR STRUCTURES: No pericardial effusion. Stable prominence of the ascending aorta. L argest diameter is 4.0 cm. UPPER ABDOMEN: No significant findings. Limited exam. THYROID AND OTHER SOFT TISSUES: No masses. No adenopathy. BONES: No significant finding. HARDWARE: None in the chest. OTHER: No other significant findings. IMPRESSION: Bilateral emphysematous changes most marked in the lung apices. No consolidation. No s uspicious pulmonary nodules. TECHNICAL DOCUMENTATION: JOB ID: [id number] Quality ID # [id number]: Final reports with documentation of one or more dose reduction techniques (e.g., Au tomated exposure control, adjustment of the mA and/or kV according to patient size, use of iterative reconstruction technique) 2010 [employer]- All Rights Reserved Reading location - IP/workstation name: [email or web address]
== END ==
LOC: RAD 15:10
PROVIDERS: ATTEND Internal Medicine Critical Care Medicine
DX: R91.1 Solitary pulmonary nodule (principal); R91.8 Other nonspecific abnormal finding of lung field; Z87.01 Personal history of pneumonia (recurrent)
CPT/HCPCS: 71250